=== PATIENT | female | born 1950 | race Caucasian/White ===

== ENCOUNTER 2020-05-30 19:34 | Observation (INO) ==
[2020-05-30] MEDS ORDERED: NS 500 ML IV 500 ML IV ONE ×2 (21:50→23:02)
[2020-05-30 22:17] LABS: BASOPHILS % (AUTO) 0.8 % (0.2-1.0); EOSINOPHILS # (AUTO) 0.1 x10^3/uL (0.0-0.2); EOSINOPHILS % (AUTO) 2.1 % (0.9-2.9); LYMPHOCYTES # (AUTO) 1.1 X10^3/uL (1.3-2.9); LYMPHOCYTES % (AUTO) 27.1 % (21.0-51.0); MEAN CORPUSCULAR HEMOGLOBIN 30.6 pg (27.0-34.0); MEAN CORPUSCULAR HGB CONC 33.4 g/dL (33.0-35.0); MEAN CORPUSCULAR VOLUME 91.7 fL (80.0-100.0); MEAN PLATELET VOLUME 7.7 fL (7.4-11.0); MONOCYTES # (AUTO) 0.4 x10^3/uL (0.3-0.8); NEUTROPHILS # (AUTO) 2.4 x10^3/uL (2.2-4.8); PLATELET COUNT 149 X10^3/uL (150.0-450.0); RED BLOOD COUNT 4.26 X10^6/uL (3.5-5.4)
[2020-05-30 22:20] VITALS: BMI 25.7
[2020-05-30 22:37] LABS: ALANINE AMINOTRANSFERASE 638 Units/L (12-78); ALBUMIN 3.5 g/dL (3.4-5.0); ALKALINE PHOSPHATASE 87 Units/L (46-116); ASPARTATE AMINO TRANSFERASE 457 Units/L (15-37); BLOOD UREA NITROGEN 21 mg/dL (7-18); CARBON DIOXIDE 27.1 mmol/L (21-32); CHLORIDE 104 mmol/L (98-107); COR NA(FOR HYPERGLY) 139 mmol/L (136-145); CREATINE KINASE 33 Units/L (26-192); CREATINE KINASE MB < 1.0 ng/mL (0-4.0); CREATININE 1.04 mg/dL (0.55-1.02); FREE T4 (FREE THYROXINE) 1.38 ng/dL (0.76-1.46); MAGNESIUM 1.9 mg/dL (1.7-2.9); SODIUM 138 mmol/L (136-145); TOTAL PROTEIN 6.9 g/dL (6.4-8.2); TROPONIN I < 0.02 ng/mL (0-1.5); TSH (3RD GENERATION) 2.003 uIU/mL (0.358-3.74); eGFR NON BLACK RACES 56 (>60)
[2020-05-30] MEDS ORDERED: NS 1000 ML 1,000 ML ONE (23:02)
[2020-05-30] MEDS: NS 1000 ML 1,000 ML IV SCH (23:08)
[2020-05-31 00:03] LABS: BILIRUBIN,URINE NEGATIVE (NEGATIVE); BLOOD/HEMOGLOBIN,URINE NEGATIVE (NEGATIVE); GLUCOSE, URINE NEGATIVE (NEGATIVE); KETONES,URINE NEGATIVE (NEGATIVE); LEUKOCYTE ESTERASE ,URINE NEGATIVE (NEGATIVE); NITRITES,URINE NEGATIVE (NEGATIVE); PROTEIN,URINE NEGATIVE (NEGATIVE); UROBILINOGEN,URINE NORMAL (NORMAL)
[2020-05-31 00:18] LABS: APPEARANCE,URINE CLEAR (CLEAR); COLOR,URINE YELLOW (YELLOW)
--- NOTE | 2020-05-31 03:11 | RAD ---
HISTORYdizzySTUDYCHEST, 1 VIEWCOMPARISONNoneFINDINGSThe trachea is midline. The cardiac silhouette is unremarkable . The lungs are clear without focal infiltrate or effusion. The bony thorax is unremarkable.IMPRESSIONNo acute cardiopulmonary disease.Electronically signed by: Malaika Hobbs (May 31, 2020 03:09:57)
[2020-05-31 06:28] LABS: EOSINOPHILS # (AUTO) 0.1 x10^3/uL (0.0-0.2); HEMATOCRIT 35.5 % (36.0-47.0); LYMPHOCYTES # (AUTO) 1.4 X10^3/uL (1.3-2.9); LYMPHOCYTES % (AUTO) 37.9 % (21.0-51.0); MEAN CORPUSCULAR HEMOGLOBIN 30.7 pg (27.0-34.0); MEAN CORPUSCULAR HGB CONC 33.8 g/dL (33.0-35.0); MEAN CORPUSCULAR VOLUME 90.7 fL (80.0-100.0); MEAN PLATELET VOLUME 7.8 fL (7.4-11.0); MONOCYTES # (AUTO) 0.3 x10^3/uL (0.3-0.8); NEUTROPHILS # (AUTO) 1.8 x10^3/uL (2.2-4.8); NEUTROPHILS % (AUTO) 48.1 % (42.0-75.0); PLATELET COUNT 127 X10^3/uL (150.0-450.0); RED BLOOD COUNT 3.91 X10^6/uL (3.5-5.4); WHITE BLOOD COUNT 3.7 X10^3/uL (3.6-10.0)
[2020-05-31 06:50] LABS: ALANINE AMINOTRANSFERASE 541 Units/L (12-78); ALBUMIN 3.1 g/dL (3.4-5.0); ALKALINE PHOSPHATASE 84 Units/L (46-116); ASPARTATE AMINO TRANSFERASE 361 Units/L (15-37); BLOOD UREA NITROGEN 18 mg/dL (7-18); CALCIUM 8.4 mg/dL (8.5-10.1); CARBON DIOXIDE 25.7 mmol/L (21-32); CHLORIDE 107 mmol/L (98-107); COR CA(FOR HYPOALB) 9.1 mg/dL (8.5-10.1); CREATININE 0.79 mg/dL (0.55-1.02); SODIUM 140 mmol/L (136-145); TOTAL PROTEIN 6.2 g/dL (6.4-8.2); eGFR NON BLACK RACES > 60 (>60)
--- NOTE | 2020-05-31 09:20 | CT ---
HEAD (TRAUMA)CLINICAL INDICATION: hx of recent falls no head trauma dizzyTECHNIQUE: Images were obtained through the head per standard CT protocol. Multiplanar reformatted images were generated from the CT dataset. Dose reduction techniques including Automated Exposure Control (AEC) and adjustment of mA and kV were utlized.COMPARISON:None.FINDINGS:Diffuse patchy and confluent periventricular and subcortical hypoattenuation with associated volume loss . There is no evidence of acute infarction, intracranial hemorrhage, mass or mass effect, or abnormal extra-axial collection . The density of the larger dural venous sinuses is normal . Age-related, ex-vacuo dilatation of the ventricles and sulci . The skull base and calvarium are normal .The included paranasal sinuses and mastoid air cells are predominantly clear .IMPRESSION:1. No acute intracranial abnormality. Chronic microangiopathic changes and ex vacuo dilatation of the ventricles and sulci.Electronically signed by: YEISON CONNOLLY (May 31, 2020 09:19:46)
[2020-05-31] MEDS ORDERED: LEXAPRO ONE (09:45)
--- NOTE | 2020-05-31 09:54 | DR.H&P ---
H&P - History & Physical for Day of: H&P Date: 05/30/20 - Chief Complaint Chief Complaint: Nausea, weakness, confusion - History of Present Illness History of Present Illness: The patient is a 69yo WF who presents with friend with complaints of increased fatigue, weakness, dizziness. States she has not been feeling good. Has history of falls. Denies fever. States she is having nausea. Is not able to eat or drink much. Denies diarrhea. States her legs are trembling when she tries to walk. Caregiver present states she has had some confusion. Denies any other complaints. - Past Medical History Past Medical History: Anxiety, GERD, Hypertension, Hypothyroidism Additional Medical History: Osteoporosis, OA, PVD, Vitamin D Deficiency, Fibromyalgia - Past Surgical History Surgical History: Cholecystectomy, Hysterectomy, Ortho Surgery, Tonsillectomy - Family History Family Medical History: Cancer, [place], Coronary Artery Disease - Social History Does patient currently use any type of tobacco product: No Have you used tobacco products in the last 12 months: No Type of Tobacco Use: None Does any household member use tobacco: No Alcohol Use: None Drug Use: None Risks, benefits, and alternatives of opioids discussed: No Prescription drug monitoring program results: PDMP reviewed and no concerns identified - Medications Home Medications: No Known Drug Allergies Allergy (Verified 05/30/20 22:11) CONTINUE taking the following medications aspirin [Aspir-81] 81 mg PO DAILY 05/30/20 [History] cholecalciferol (vitamin D3) [Vitamin D3] 50 mcg PO DAILY 05/30/20 [History] escitalopram oxalate 10 mg PO DAILY 05/30/20 [History] hydrocodone-acetaminophen 10 - 325 tab PO TID PRN 05/30/20 [History] lorazepam 1 mg PO DAILY PRN 05/30/20 [History] meclizine 25 mg PO TID PRN 05/30/20 [History] melatonin 3 mg PO HS PRN 05/30/20 [History] meloxicam [Mobic] 7.5 mg PO DAILY 05/30/20 [History] ondansetron HCl [Zofran] 8 mg PO Q12H PRN 05/30/20 [History] ursodiol 300 mg PO BID 05/30/20 [History] vitamin E 400 unit PO DAILY 05/30/20 [History] - Review of Systems Constitutional: Weakness, Malaise Eyes: No Symptoms Reported ENT: No Symptoms Reported Respiratory: No Symptoms Reported Cardiovascular: No Symptoms Reported Gastrointestinal: Nausea Genitourinary: Other (Not voiding) Musculoskeletal: Back Pain Skin: No Symptoms Reported, Other Neurological: Weakness, Confusion - Physical Exam Vital Signs: Temperature 98.3 F Pulse Rate [Left Radial] 74 Respiratory Rate 18 Blood Pressure [Right Arm] 129/61 O2 Sat by Pulse Oximetry 95 Oriented: Normal Eyes: Normal Ear: Normal Nose: Normal Throat: Normal Respiratory: Clear Throughout Cardiovascular: Normal : Normal Auscultation: Bowel Sounds: Normal Palpation: Normal Tenderness: Normal Skin: Decreased Turgur Musculoskeletal: Back:Lumbar Psychiatric: Depression Mood Description: Flat Affect: Flat Speech Pattern: Clear - Assessment/Plan (1) Confusion Status: Acute Plan: LABS, CT HEAD (2) Dehydration Status: Acute Plan: LABS, IV HYDRATION (3) Falls Status: Acute (4) Weakness Status: Acute Plan: LABS, IV HYDRATION, DISCUSS FOR REHAB THERAPY ON DISCHARGE - Review H&P Reviewed: Yes - Allergies Allergies/Adverse Reactions: Allergies Allergy/AdvReac Type Severity Reaction Status Date / Time No Known Drug Allergies Allergy Verified 05/30/20 22:11
[2020-05-31] MEDS: ANTIVERT TAB 25 MG PO SCH ×3 (09:56→21:32)
[2020-05-31] MEDS: LEXAPRO PO SCH (09:56)
[2020-05-31] MEDS: NORCO 5/325 MG TAB PO PRN (09:56)
[2020-05-31] MEDS: ZyrTEC TAB 10 MG PO SCH (09:56)
[2020-05-31] MEDS: NS 1000 ML 1,000 ML IV SCH ×2 (14:30→21:14)
[2020-05-31 14:56] LABS: IRON 92 ug/dL (50-175)
[2020-05-31] MEDS ORDERED: ZOFRAN TAB 4 MG PO PRN (17:34)
--- NOTE | 2020-05-31 17:45 | DR.H&P ---
H&P - History & Physical for Day of: H&P Date: 05/30/20 - Chief Complaint Chief Complaint: FALLS WITH HEAD INJURY, INTRACTABLE DIZZINESS, DEHYRATION - History of Present Illness History of Present Illness: PT IS 69 WF DIRECT ADMIT FROM DR LOUIS JIM OFFICE WITH CO DEHYDRATION AND WEAKNESS WITH MULTIPLE RECENT FALLS. PT REPORTS HEAD INJURY WITH FALL, RESULTING IN INTRACTABLE DIZZINESS. PT DENIES HX OF VERTIGO. PT DENIES ANY FEVER, CCC OR FLU LIKE SYMPTOMS. PT REPORTS HER LEGS GIVE OUT. PT HAS RECENTLY HAD "HEART TEST, BLOOD TESTING, CAROTID ARTERY ULTRASOUND AND THEY CANNOT FIGURE OUT WHATS WRONG" PT HAS PMH OF OA, DANYEL, GERD. PT ADMITTED FOR TREATMENT OF ACUTE ILLNESS. - Past Medical History Past Medical History: Anxiety, GERD, Hypertension, Hypothyroidism Additional Medical History: Osteoporosis, OA, PVD, Vitamin D Deficiency, Fibromyalgia - Past Surgical History Surgical History: Cholecystectomy, Hysterectomy, Ortho Surgery, Tonsillectomy - Family History Family Medical History: Cancer, [place], Coronary Artery Disease - Social History Does patient currently use any type of tobacco product: No Have you used tobacco products in the last 12 months: No Type of Tobacco Use: None Does any household member use tobacco: No Alcohol Use: None Drug Use: None - Medications Home Medications: No Known Drug Allergies Allergy (Verified 05/30/20 22:11) CONTINUE taking the following medications aspirin [Aspir-81] 81 mg PO DAILY 05/30/20 [History] cholecalciferol (vitamin D3) [Vitamin D3] 50 mcg PO DAILY 05/30/20 [History] escitalopram oxalate 10 mg PO DAILY 05/30/20 [History] hydrocodone-acetaminophen 10 - 325 tab PO TID PRN 05/30/20 [History] lorazepam 1 mg PO DAILY PRN 05/30/20 [History] meclizine 25 mg PO TID PRN 05/30/20 [History] melatonin 3 mg PO HS PRN 05/30/20 [History] meloxicam [Mobic] 7.5 mg PO DAILY 05/30/20 [History] ondansetron HCl [Zofran] 8 mg PO Q12H PRN 05/30/20 [History] ursodiol 300 mg PO BID 05/30/20 [History] vitamin E 400 unit PO DAILY 05/30/20 [History] - Review of Systems Constitutional: Weakness Eyes: No Symptoms Reported ENT: No Symptoms Reported Respiratory: No Symptoms Reported Cardiovascular: No Symptoms Reported Gastrointestinal: Nausea Genitourinary: No Symptoms Reported Musculoskeletal: Back Pain, Neck Pain Neurological: Weakness, Other (DIZZINESS) - Physical Exam Vital Signs: Temperature 99.2 F Pulse Rate [Right] 81 Pulse Rate [Left Radial] 71 Respiratory Rate 20 Blood Pressure [Right Arm] 99/56 O2 Sat by Pulse Oximetry 97 Oriented: Normal Eyes: Normal Ear: Normal Throat: Normal Respiratory: RLL Diminished, LLL Diminished Cardiovascular: Normal : Normal Auscultation: Bowel Sounds: Normal Palpation: Normal Tenderness: Normal Skin: Decreased Turgur Musculoskeletal: Back:Lumbar Psychiatric: Anxiety Mood Description: Anxious Affect: Anxious Speech Pattern: Clear, Appropriate - Assessment/Plan (1) Head injury due to trauma Status: Acute Plan: ADMIT, CT HEAD R/O ACUTE HEAD INJURY/BRAIN TRAUMA/CVA. ADMISSION LABS, CBC CMP UA. VERIFY HOME MEDICATION, EKG. CXR ON ADMISSION, BP AND CARDIAC MONITORING (2) Dizziness Status: Acute (3) Dehydration Status: Acute - Allergies Allergies/Adverse Reactions: Allergies Allergy/AdvReac Type Severity Reaction Status Date / Time No Known Drug Allergies Allergy Verified 05/30/20 22:11
[2020-05-31] MEDS: ATIVAN TAB 1 MG PO PRN (23:11)
[2020-06-01] MEDS: NORCO 5/325 MG TAB PO PRN (05:14)
[2020-06-01] MEDS: NS 1000 ML 1,000 ML IV SCH (05:14)
[2020-06-01] MEDS: ANTIVERT TAB 25 MG PO SCH (05:14)
[2020-06-01 06:28] LABS: BASOPHILS % (AUTO) 1.1 % (0.2-1.0); EOSINOPHILS # (AUTO) 0.2 x10^3/uL (0.0-0.2); LYMPHOCYTES # (AUTO) 1.1 X10^3/uL (1.3-2.9); LYMPHOCYTES % (AUTO) 32.1 % (21.0-51.0); MEAN CORPUSCULAR HEMOGLOBIN 30.4 pg (27.0-34.0); MEAN CORPUSCULAR HGB CONC 33.4 g/dL (33.0-35.0); MEAN CORPUSCULAR VOLUME 91.2 fL (80.0-100.0); MEAN PLATELET VOLUME 7.8 fL (7.4-11.0); MONOCYTES # (AUTO) 0.3 x10^3/uL (0.3-0.8); NEUTROPHILS # (AUTO) 1.8 x10^3/uL (2.2-4.8); NEUTROPHILS % (AUTO) 52.8 % (42.0-75.0); PLATELET COUNT 120 X10^3/uL (150.0-450.0); RED BLOOD COUNT 3.95 X10^6/uL (3.5-5.4); RED CELL DISTRIBUTION WIDTH 13.2 % (11.6-16.5); WHITE BLOOD COUNT 3.4 X10^3/uL (3.6-10.0)
[2020-06-01 06:32] LABS: ALANINE AMINOTRANSFERASE 555 Units/L (12-78); ALKALINE PHOSPHATASE 84 Units/L (46-116); AMYLASE 38 Units/L (25-115); ASPARTATE AMINO TRANSFERASE 390 Units/L (15-37); BLOOD UREA NITROGEN 13 mg/dL (7-18); CALCIUM 8.3 mg/dL (8.5-10.1); CARBON DIOXIDE 23.6 mmol/L (21-32); CHLORIDE 107 mmol/L (98-107); COR CA(FOR HYPOALB) 9.1 mg/dL (8.5-10.1); COR NA(FOR HYPERGLY) 140 mmol/L (136-145); CREATININE 0.97 mg/dL (0.55-1.02); LIPASE 282 Units/L (73-393); SODIUM 140 mmol/L (136-145); TOTAL PROTEIN 6.2 g/dL (6.4-8.2); eGFR NON BLACK RACES > 60 (>60)
--- NOTE | 2020-06-01 08:58 | US ---
[id number] female with elevated liver function testSTUDYLimited abdominal ultrasoundCOMPARISONNoneFINDINGSLiver has a normal size. A heterogeneous echotexture is seen though n o focal intrahepatic abnormality is identified. Portal vein is patent with normal hepatopetal flow.Howard maki is status post cholecystectomy. Common bile duct measures 3 millimeters in diameter.Right kidne y is 9.8 centimeters in length. No hydronephrosis, echogenic calculi, or renal mass is seen on the ri ght.Visualized aspect of the pancreas is unremarkable.IMPRESSION1. Liver demonstrates a heterogeneous echotexture though no focal intrahepatic abnormality is identified.2. Status post cholecystectomy.El ectronically signed by: EMILY PINA (Jun 01, 2020 08:57:02)
[2020-06-01] MEDS ORDERED: LEXAPRO ONE (08:59)
[2020-06-01] MEDS: ATIVAN TAB 1 MG PO PRN (09:51)
[2020-06-01] MEDS: ZyrTEC TAB 10 MG PO SCH (09:51)
[2020-06-01] MEDS: LEXAPRO PO SCH (09:52)
[2020-06-01 12:29] VITALS: BP 109/56
== END 2020-06-01 14:50 | disposition home health service (06) ==
LOC: MED/SURG
PROVIDERS: ADMIT Internal Medicine; ATTEND Internal Medicine
DX: K21.9 Gastro-esophageal reflux disease without esophagitis; R42 Dizziness and giddiness; R41.0 Disorientation, unspecified; W18.39XA Other fall on same level, initial encounter; R53.1 Weakness; E03.8 Other specified hypothyroidism; R29.6 Repeated falls; E86.0 Dehydration; R26.89 Other abnormalities of gait and mobility; R74.8 Abnormal levels of other serum enzymes; I10 Essential (primary) hypertension; F41.8 Other specified anxiety disorders; S09.90XA Unspecified injury of head, initial encounter
CPT/HCPCS: 36415; 70450; 71010; 71045; 76705; 80053; 80074; 81003; 82150; 82550; 82553; 82607; 82728; 82746; 83540; 83690; 83735; 84439; 84443; 84466; 84484; 85025; 87086; 93005; 96360; 96361; 96374; 97162; 97166; 97535; A4216; A4222; G0378; J7030; J7040; S0119; S0181